=== PATIENT | female | born 1955 | race Caucasian/White ===

== ENCOUNTER 2016-08-06 05:12 | Emergency (ER) | payer OTHER ==
[~2016-08-06] VITALS: Ht 157.5 cm; Wt 92.7 kg
[2016-08-06 05:15] VITALS: BP 156/73; PULSE 86; RESP 24; O2SAT 99
[2016-08-06] MEDS ORDERED: 0.9% Sodium Chloride 1,000 ML IV ONE (05:39)
[2016-08-06] MEDS ORDERED: Ondansetron 2 mg/mL 2 mL Inj IVPUSH PRN (05:40)
[2016-08-06] MEDS: HYDROmorphone 0.5 mg/0.5 mL iSecure Syringe IVPUSH PRN ×3 (05:57→06:24)
--- NOTE | 2016-08-06 06:04 | ED.REPORT ---
HPI-Abd Pain F 40 and Over Date of Service Aug 06, 2016 ED Provider: Alexander Croft MD The patient is a 60 year old female who presents to the emergency department complaining of left-sided abdominal pain that began earlier this morning. The pain was initially periumbilical then it radiated down to her vagina. She has also experienced left flank pain, nausea, diarrhea, and abdominal bloating. Her pain is not improved with rest. She has history of kidney stones but today her pain is more severe. She also mentions feeling more thirsty than normal. She denies fever, chills, vomiting, shortness of breath, cough or chest pain. Nursing Notes Stated Complaint: ABDOMINAL PAIN Chief Complaint: Female Abdominal Pain Nursing Notes Reviewed: Yes Allergies: Coded Allergies: acetaminophen (Verified Allergy, Unknown, 08/06/16) palpitations hydrocodone (Verified Allergy, Unknown, 08/06/16) palpitations Uncoded Allergies: NSAIDS (Allergy, Unknown, 08/06/16) eulalio's esophagus Scheduled Metformin (Metformin) 500 Mg Tablet 500 MG PO BID Scheduled PRN Tramadol (Tramadol) 50 Mg Tablet 50 MG PO Q4H PRN PRN For Pain General Time Seen by MD: 06:10 Chief Complaint Abdominal pain Hx Obtained From: Patient Arrived By: Walk-in Sudden in Onset?: Yes Onset Occurred: 1 - 4 hours ago Symptom Duration: Since onset Progression since Onset: Constant Location: : LLQ Quality: Painful Radiation: : Suprapubic Severity: Current: Moderate Severity: Maximum: Severe Recent Healthcare: No recent doctor visit, No recent hospitalization Similar Sx Previous: Yes Past Medical History Past Medical History Kidney stones Hx of barretts esophagus GERD Past Surgical History Hysterectomy Family History Noncontributory Smoking History Never Smoker Social History Alcohol Use: Denies alcohol use Other Social History: Good social support, , Local resident Ambulatory Status Independent Review of Systems +thirsty Constitutional: Denies: Chills, Fever Respiratory: Denies: Non-productive cough, Shortness of breath Cardiovascular: Denies: Chest pain GI: Reports: Abdominal pain, Diarrhea, Nausea, Denies: Vomiting Female: Reports: Flank pain Musculoskeletal: Reports: Back pain Complete sys rev & neg: except as marked. Physical Exam Vital Signs Vital Signs (First) Date Time Temp Pulse Resp B/P Pulse Ox O2 Delivery O2 Flow Rate FiO2 08/06/16 05:15 36.0 86 24 156/73 99 08/06/16 07:22 Room Air Initial VS: Reviewed Head / Eyes: Atraumatic, Normocephalic, PERRL ENT: Mucous membranes moist, Conjunctiva normal, No scleral icterus Neck: Supple, Non-tender, Full range of motion Lymphatic: No lymphadenopathy Extremities: Vascular intact, Neuro intact, No swelling, No tenderness Skin: Warm, Dry, No cyanosis Neurologic: Alert, Oriented, Nonfocal Psychiatric: Mood/affect normal, Behavior normal, Normal thought content General/Constitutional: Awake, Alert Distress / Hydration: Positive: Distress mild Appearance / Presentation: Positive: Uncomfortable Respiratory / Chest: Atraumatic, Breath sounds NL, Breath sounds = bilat, No respiratory distress, No rales, No rhonchi, No wheezing, No stridor Cardiovascular: Heart rate NL, Regular rhythm, Heart sounds NL, Peripheral circulation NL Abdomen: Atraumatic, Soft, Non-tender, McBurney's non-tender, No guarding, No rebound, BS normoactive, No distention, No hernia, No palpable mass, No pulsatile mass Back: Inspection NL, No CVA tenderness Interpretation & Diagnostics CT ABDOMEN AND PELVIS WITH CONTRAST CONCLUSION: 1 x 2 mm stone at the left UVJ producing mild obstruction. Bilateral small nonobstructing intrarenal calculi. Cholelithiasis. Fatty infiltration of the liver. Minimal diverticulosis. Dictated by Kiirt Fierro M.D. at 08/06/2016 - 6:29:08 AM [facility] Lab Results Interpretation Result Diagram: 08/06/16 0630 08/06/16 0630 Test 08/06/16 06:30 08/06/16 07:29 White Blood Count 5.8th/mm3 (3.8-10.1) Red Blood Count 4.40mil/mm3 (3.90-5.20) Hemoglobin 11.2g/dL (12.0-15.6) Hematocrit 33.3% (35.0-46.0) Mean Corpuscular Volume 75.7fL (81-100) Mean Corpuscular Hemoglobin 25.5pg (27.0-35.0) Mean Corpuscular Hemoglobin Concent 33.6% (32.0-37.0) Red Cell Distribution Width 15.4% (12.3-15.4) Platelet Count 118bil/L (150-400) Neutrophils (%) (Auto) 85.3% (40-74) Lymphocytes (%) (Auto) 8.9% (14-46) Monocytes (%) (Auto) 4.3% (4-12) Eosinophils (%) (Auto) 1.0% (0-5) Basophils (%) (Auto) 0.2% (0-3) Sodium Level 139mEq/L (134-144) Potassium Level 3.8mEq/L (3.5-5.2) Chloride Level 103mEq/L (97-108) Carbon Dioxide Level 21mmol/L (18-29) Blood Urea Nitrogen 14mg/dL (8-27) Creatinine 0.80mg/dL (0.57-1.00) Estimat Glomerular Filtration Rate 104mL/min (>59) Glucose Level 259mg/dL (60-99) Calcium Level 8.7mg/dL (8.5-10.1) Magnesium Level 1.6mg/dL (1.6-2.6) Total Bilirubin 0.5mg/dL (0.0-1.2) Aspartate Amino Transf (AST/SGOT) 19U/L (0-50) Alanine Aminotransferase (ALT/SGPT) 13U/L (0-32) Alkaline Phosphatase 59U/L (25-165) Total Protein 7.0g/dL (6.4-8.4) Albumin 3.9g/dL (3.4-5.0) Lipase 61U/L (13-60) Hold Mora Top Tube Received (Received) Urine Color Straw (YELLOW) Urine Appearance Hazy (CLEAR,HAZY) Urine pH 5.5 (5.0-8.0) Urine Specific [place] 1.025 (1.003-1.035) Urine Protein Tracemg/dL (NEG,TRACE) Urine Glucose (UA) Negativemg/dL (NEGATIVE) Urine Ketones Negativemg/dL (NEGATIVE) Urine Occult Blood Moderate (NEGATIVE) Urine Nitrite Negative (NEGATIVE) Urine Bilirubin Negative (NEGATIVE) Urine Urobilinogen Normalmg/dL (NORMAL) Urine Leukocyte Esterase Negative (NEGATIVE) Urine RBC 0-2/hpf (0-2) Urine WBC 0-5/hpf (0-5) Urine Epithelial Cells Occasional/hpf (NONE-MOD) Urine Crystals Oxalic acid crystals (NONE Urine Bacteria None/hpf (NONE-FEW) Urine Hyaline Casts None/lpf (NONE) Urine Granular Casts None seen (NONE SEEN) Urine Waxy Casts None seen (NONE SEEN) Urine Red Blood Cell Casts None seen (NONE SEEN) Urine White Blood Cell Casts None seen (NONE SEEN) Urine Mucus None seen (None Seen) Urine Trichomonas None seen (NONE SEEN) Urine Yeast None (NONE SEEN) Urinalysis Comment None Urine Culture Reflexed Not indicated Re-Eval/Medical Decision Med Decision/Clinical Course Patient has a small kidney stone without signs of infection, incidentally is also new onset diabetes and will be started on metformin. Patient discharged on tramadol. return precautions given Source of Hx: Old records Re-Evaluation/Progress : Time of Eval: 08:03 Re-Evaluation/Progress Note: Rechecked the patient. Discussed CT and labs results, diagnosis, and plan for discharge. All questions were addressed. Counseled Regarding: Diagnosis, Lab results, Need for follow-up, When/why to return to ED Discharge & Departure Primary Impression: Kidney stone Additional Impression: Hyperglycemia Disposition: Home Discharge Condition All VS Reviewed: Yes Condition: Stable Patient Instructions: Diabetes Mellitus Type 2 in Adults (ED), Renal Colic (ED) Additional Instructions: Thank you for entrusting us with your care today. Your CT scan shows evidence of a kidney stone. The stone should pass on it's own. Make sure to drink plenty of fluids. Use the pain medication as needed. Your blood glucose was 250 today. This may be the beginning of type II diabetes. We will start you on Metformin. You will need to check your blood sugars in the morning. Try your best to stay away from foods that have a high amount of sugars. You will need to followup with a primary doctor in the next few days to discuss further management of this. Seek care if you develop increased pain, fever, chills, uncontrollable vomiting , dysuria, or any other new or concerning symptoms. Referrals: David Lundy ND (PCP) [employer] Attestation Portions of this note were transcribed by Arely Barahona. I, Dr. Dumont personally performed the history, physical exam and medical decision-making; I reviewed and confirmed the accuracy of the information in the transcribed note. Signed by: Ronan Mcarthur, 08/06/2016 at 0810. copies to: David Lundy ND, Timothy S DO Aug 06, 2016 06:04 Arely Barahona Aug 06, 2016 06:14
[2016-08-06 07:04] LABS: BASOPHILS % (AUTO) 0.2 % (0-3); MONOCYTES % (AUTO) 4.3 % (4-12); Mean Corpuscular Hemoglobin 25.5 pg (27.0-35.0); Mean Corpuscular Volume 75.7 fL (81-100); NEUTROPHILS % (AUTO) 85.3 % (40-74); Platelet Count 118 bil/L (150-400)
[2016-08-06 07:22] VITALS: BP 135/57; PULSE 81; RESP 18; O2SAT 98
[2016-08-06 07:54] LABS: Magnesium 1.6 mg/dL (1.6-2.6)
--- NOTE | 2016-08-06 08:49 | DRSVH ---
PROCEDURE: CT KUB ([id number]) INDICATIONS: left flank pain TECHNIQUE: Noncontrast 5 mm thick sections acquired from the diaphragms to the symphysis. 5 mm thick coronal an d sagittal reformats were then performed. For radiation dose reduction, the following was used: aut omated exposure control, adjustment of mA and/or kV according to patient size. COMPARISON: None. FINDINGS: Image quality: Excellent. Lung bases: Lung bases are clear. Heart size is normal. There are three soft tissue densities luz marina g the anterior aspect the pericardial fat the largest measuring 11 mm on series 2 image 6. No priors are available for comparison. Urinary system: Both kidneys are normal in size. There is a punctate nonobstructing right renal calc ulus within the superior pole on series 2 image 33. There are two punctate calcifications within the superior left renal pole on series 2 image 32. There is mild hydronephrosis and hydroureter. There is a 2 mm calcification within the bladder base adjacent to the left ureterovesicular junction. No hydr onephrosis or perinephric fat stranding. Both ureters appear non-dilated throughout their expected c ourses. Other solid organs: Liver is enlarged with steatosis. There is an ill-defined area of low attenuatio n measuring approximately 5 mm in the hepatic dome on series 2 image 10. No priors are available for comparison. normal in size. Gallbladder demonstrates luminal stones without wall thickening. Pancre as is normal in contours. No adrenal nodules. Peritoneum and bowel: Unenhanced bowel loops demonstrate normal wall thickness and caliber. No free fluid or air. Colonic diverticula are present without associated inflammatory change. Nodes and vessels: No retroperitoneal or mesenteric adenopathy by size criteria. Aorta and inferior vena cava are normal in caliber. Abdominal wall: No ventral hernias. Pelvis: No free pelvic fluid. No inguinal hernias or adenopathy. Bones: No suspicious bony lesions. No vertebral body compression fractures. IMPRESSION: 1. Mild left hydronephrosis and hydroureter secondary to punctate stone at the left ureterovesicular junction. 2. Bilateral punctate nonobstructing renal calculi are present. 3. Diverticulosis. 4. Soft tissue densities along the anterior pericardial fat, the largest measuring 11 mm. No priors a re available for comparison. These may represent lymph nodes. Recommend interval followup as indicate d. 5. Cholelithiasis. Dictated by: Hazel Peacock M.D. on 08/06/2016 at 8:40 Approved by: Hazel Peacock M.D. on 08/06/2016 at 8:48
[2016-08-06 08:54] LABS: APPEARANCE,URINE HAZY (CLEAR,HAZY); COLOR,URINE STRAW (YELLOW); OCCULT BLOOD,URINE MODERATE (NEGATIVE); PH,URINE 5.5 (5.0-8.0); UROBILINOGEN,URINE NORMAL (NORMAL)
[2016-08-06] MEDS ORDERED: TRAM50TA2 PO (09:00)
[2016-08-06] MEDS ORDERED: METF500T4 PO (09:00)
[2016-08-06 09:58] VITALS: BP 124/46; PULSE 86; RESP 10; O2SAT 97
== END 2016-08-06 09:01 | disposition home or self-care (01) ==
LOC: SED 05:12
DX: N20.0 Calculus of kidney (principal); E11.65 Type 2 diabetes mellitus with hyperglycemia; R19.7 Diarrhea, unspecified; K21.9 Gastro-esophageal reflux disease without esophagitis; Z88.5 Allergy status to narcotic agent; Z87.442 Personal history of urinary calculi; Z79.84 Long term (current) use of oral hypoglycemic drugs; Z88.6 Allergy status to analgesic agent
CPT/HCPCS: 36415; 74176; 80053; 81000; 83690; 83735; 85025; 96374; 96375; 99285; J1170; J1885; J2405; J7030